=== PATIENT | female | born 1945 | race Caucasian/White ===

== ENCOUNTER 2018-02-19 08:13 | Emergency (ER) | payer MEDICARE ==
[2018-02-19] MEDS ORDERED: Sodium Chloride 0.9% 10 ML Syringe FLUSH PRN (09:17)
--- NOTE | 2018-02-19 09:18 | EDM.PDOC ---
ED HPI GENERAL MEDICAL PROBLEM - General Chief Complaint: General Stated Complaint: LEFT RIB PAIN Time Seen by Provider: 02/19/18 09:00 Source of Information: Reports: Patient, Family History Limitations: Reports: No Limitations - History of Present Illness INITIAL COMMENTS - FREE TEXT/NARRATIVE: Luz Maria comes into [facility] ED with a month long hx of intermittent lancinating pains originating from the L anterolateral costal margin, significance unknown. Sxs occur spontaneously, worse with prolonged sitting, and improve with standing. She reports no SOB, palpitations, cough, breast pain, rash, or voiding issues. She has not medicated. She is traveling from [facility]. L anterior rib area Pain Score (Numeric/FACES): 10 - Related Data Allergies Allergy/AdvReac Type Severity Reaction Status Date / Time No Known Allergies Allergy Verified 02/19/18 08:22 Home Meds: Home Meds Levothyroxine [Sythroid] 100 mcg PO DAILY 02/19/18 [History] Losartan/Hydrochlorothiazide [Losartan-HCTZ 100-25 MG] 1 tab DAILY 02/19/18 [ History] Past Medical History Cardiovascular History: Reports: Hypertension Gastrointestinal History: Reports: Chronic Constipation [employer] History: Reports: Other [employer] History: Musculoskeletal History: Reports: Arthritis, Fracture, Neck Pain, Chronic Other Musculoskeletal History: hx nasal fx Neurological History: Reports: Migraines Endocrine/Metabolic History: Reports: Hypothyroidism - Infectious Disease History Infectious Disease History: Reports: Chicken Pox, Measles - Past Surgical History GI Surgical History: Reports: Colonoscopy Neurological Surgical History: Reports: C-Spine Other Neurological Surgeries/Procedures: CS neck fusion Musculoskeletal Surgical History: Reports: Knee Replacement Other Musculoskeletal Surgeries/Procedures:: R partial knee replacement Social & Family History - Family History Family Medical History: Noncontributory - Tobacco Use Smoking Status *Q: Never Smoker - Caffeine Use Caffeine Use: Reports: Coffee, Tea - Recreational Drug Use Recreational Drug Use: No ED ROS GENERAL - Review of Systems Review Of Systems: See Below Constitutional: Reports: No Symptoms HEENT: Reports: No Symptoms Respiratory: Reports: No Symptoms Cardiovascular: Reports: Chest Pain Endocrine: Reports: No Symptoms GI/Abdominal: Reports: No Symptoms : Reports: No Symptoms Musculoskeletal: Reports: Neck Pain, Hand Pain, Joint Pain (OA in both knees) Skin: Reports: No Symptoms Neurological: Reports: No Symptoms Psychiatric: Reports: No Symptoms Hematologic/Lymphatic: Reports: No Symptoms Immunologic: Reports: No Symptoms ED EXAM, GENERAL - Physical Exam Exam: See Below Exam Limited By: No Limitations General Appearance: Alert, WD/WN, No Apparent Distress Eye Exam: Bilateral Eye: EOMI, Normal Inspection, PERRL Ears: Normal External Exam Nose: Normal Inspection Throat/Mouth: Normal Inspection, Normal Lips, Normal Teeth, Normal Oropharynx, Normal Voice, No Airway Compromise Head: Normocephalic Neck: Normal Inspection, Supple, Non-Tender Respiratory/Chest: No Respiratory Distress, Lungs Clear, Normal Breath Sounds, No Accessory Muscle Use, Other (tenderness at #10 rib with costal margin, no deformity palpable) Cardiovascular: Normal Peripheral Pulses, Regular Rate, Rhythm, No Edema, No Gallop, No JVD, No Murmur, No Rub, Other (prominent abdominal aorta, no bruit) GI/Abdominal: Normal Bowel Sounds, Soft, Non-Tender, No Organomegaly, No Distention, No Abnormal Bruit, No Mass, Other (abdominal aorta prominent ? tortuous) (Female) Exam: Deferred Rectal (Female) Exam: Deferred Back Exam: Normal Inspection, Full Range of Motion Extremities: Normal Inspection, Normal Range of Motion, Non-Tender, Other (DJDs both knees, patellar crepitus) Neurological: Alert, Oriented, CN II-XII Intact, Normal Cognition, Normal Gait, Normal Reflexes, No Motor/Sensory Deficits Psychiatric: Normal Affect, Normal Mood Skin Exam: Warm, Dry, Intact, Normal Color Lymphatic: No Adenopathy Course - Vital Signs Text/Narrative:: Luz Maria remained stable and asx at the [facility] ED. No meds were given. CBC and BMP were baseline. A chest x ray was normal. An abdominal CT w contrast noted a normal aorta without aneurysm. No abnormality of the LUQ or costal margin was identified. Incidental finding of gallstones and a small cyst of kidney. Costochondral tenderness may be inflammatory, managed with NSAIDs and periodic stretching while traveling. A disc with films will be provided. Last Recorded V/S: Last Vital Signs Temp 36.4 C 02/19/18 08:17 Pulse 60 02/19/18 09:20 Resp 18 02/19/18 09:20 BP 157/85 H 02/19/18 09:20 Pulse Ox 100 02/19/18 09:20 - Orders/Labs/Meds Orders: Active Orders 24 hr Category Date Time Status Abdomen Pelvis w Cont [CT] Stat Exams 02/19/18 09:10 Taken Chest 2V [CR] Stat Exams 02/19/18 09:56 Taken Diatrizoate Siobhan/Diatrizoate Na [Gastrografin 37%] Med 02/19/18 10:45 Active 30 ml PO . DIRECTED Sodium Chloride 0.9% [Saline Flush] Med 02/19/18 09:17 Active 10 ml FLUSH ASDIRECTED PRN Peripheral IV Insertion Adult [OM.PC] Routine Oth 02/19/18 09:17 Ordered Medication Orders Diatrizoate Meglum/Diatrizoate Sod (Gastrografin 37%) 30 ml PO . DIRECTED [facility] Last Admin: 02/19/18 10:33 Dose: 30 ml Sodium Chloride (Saline Flush) 10 ml FLUSH ASDIRECTED PRN PRN Reason: Keep Vein Open Last Admin: 02/19/18 09:13 Dose: 10 ml Labs: Laboratory Tests 02/19/18 02/19/18 Range/Units 09:15 09:32 WBC 5.0 (4.5-12.0) X10-3/uL RBC 4.57 (3.23-5.20) x10(6)uL Hgb 14.7 (11.5-15.5) g/dL Hct 44.3 (30.0-51.3) % MCV 97.0 H (80-96) fL MCH 32.2 (27.7-33.6) pg MCHC 33.2 (32.2-35.4) g/dL RDW 12.5 (11.5-15.5) % Plt Count 230 (125-369) X10(3)uL MPV 8.7 (7.4-10.4) fL Neut % (Auto) 60.4 (46-82) % Lymph % (Auto) 28.8 (13-37) % Vermilion % (Auto) 7.8 (4-12) % Eos % (Auto) 2 (1.0-5.0) % Baso % (Auto) 1 (0-2) % Neut # (Auto) 3.0 (1.6-8.3) # Lymph # (Auto) 1.4 (0.6-5.0) # Vermilion # (Auto) 0.4 (0.0-1.3) # Eos # (Auto) 0.1 (0.0-0.8) # Baso # (Auto) 0.1 (0.0-0.2) # Sodium 141 (135-145) mmol/L Potassium 3.7 (3.5-5.3) mmol/L Chloride 103 (100-110) mmol/L Carbon Dioxide 32 (21-32) mmol/L BUN 17 (7-18) mg/dL Creatinine 0.9 (0.55-1.02) mg/dL Est Cr Clr Drug Dosing 43.89 mL/min Estimated GFR (MDRD) > 60 (>60) BUN/Creatinine Ratio 18.9 (9-20) Glucose 109 (80-116) mg/dL Calcium 9.0 (8.6-10.2) mg/dL Meds: Medications Generic Name Dose Route Start Last Admin Trade Name Freq PRN Reason Stop Dose Admin Diatrizoate Meglum/Diatrizoate Sod 30 ml 02/19/18 10:45 02/19/18 10:33 Gastrografin 37% PO 30 ml . DIRECTED CLARITZA Administration Sodium Chloride 10 ml 02/19/18 09:17 02/19/18 09:13 Saline Flush FLUSH 10 ml ASDIRECTED PRN Administration Keep Vein Open Discontinued Medications Generic Name Dose Route Start Last Admin Trade Name Freq PRN Reason Stop Dose Admin Iopamidol 75 ml 02/19/18 10:14 02/19/18 10:22 Isovue-370 (76%) IV 02/19/18 10:15 73 ml ONETIME ONE Administration Departure - Departure Time of Disposition: 10:46 Disposition: Home, Self-Care 01 Condition: Good Clinical Impression: Atypical chest pain - Discharge Information *PRESCRIPTION DRUG MONITORING PROGRAM REVIEWED*: Not Applicable *COPY OF PRESCRIPTION DRUG MONITORING REPORT IN PATIENT KAMRYN: Not Applicable Referrals: PCP,None [Primary Care Provider] - Forms: ED Department Discharge - Problem List & Annotations (1) Atypical chest pain SNOMED Code(s): 839951011 Code(s): R07.89 - OTHER CHEST PAIN Status: Acute Current Visit: Yes Annotation/Comment:: I suggested NSAIDs and periodic stretches while traveling. - Problem List Review Problem List Initiated/Reviewed/Updated: Yes - My Orders Last 24 Hours: My Active Orders 02/19/18 09:10 Abdomen Pelvis w Cont [CT] Stat 02/19/18 09:17 Sodium Chloride 0.9% [Saline Flush] 10 ml FLUSH ASDIRECTED PRN Peripheral IV Insertion Adult [OM.PC] Routine 02/19/18 09:56 Chest 2V [CR] Stat 02/19/18 10:45 Diatrizoate Siobhan/Diatrizoate Na [Gastrografin 37%] 30 ml PO . DIRECTED - Assessment/Plan Last 24 Hours: My Active Orders 02/19/18 09:10 Abdomen Pelvis w Cont [CT] Stat 02/19/18 09:17 Sodium Chloride 0.9% [Saline Flush] 10 ml FLUSH ASDIRECTED PRN Peripheral IV Insertion Adult [OM.PC] Routine 02/19/18 09:56 Chest 2V [CR] Stat 02/19/18 10:45 Diatrizoate Siobhan/Diatrizoate Na [Gastrografin 37%] 30 ml PO . DIRECTED Plan: Follow up with PCP.
[2018-02-19] MEDS ORDERED: Iopamidol 755 Mg/ML 75 ML Bottle IV ONE (10:14)
[2018-02-19] MEDS ORDERED: Diatrizoate Meglumine/Diatrizoate Sodium 37% 30 ML Bottle PO SCH (10:45)
--- NOTE | 2018-02-19 13:06 | CT ---
INDICATION: Incidental palpable prominent aorta, question aneurysm. Intermittent left costal margin lancinating pain near 10th distal rib, reproducible with movement. Symptoms times one month. CT ABDOMEN AND PELVIS WITH CONTRAST: Spiral 2.5 mm axial sections were obtained through the abdomen and pelvis with oral and IV contrast (73 mL Isovue 370 at 2.1 mL/second), with sagittal and coronal reconstructions, 02/19/2018 - no comparisons were available. Total exam DLP = 423.95 mGy-cm. An active infiltrate or effusion was not identified. The heart was normal in size. No pericardial effusion was seen. There is a somewhat enlarged gallbladder noted. The wall of the gallbladder is only very slightly thickened. Within the gallbladder, there is a 28 mm calcific rimmed calculus. The gallbladder measured approximately 10 x 4 cm. The common bile duct did not appear grossly prominent, allowing for the patient s age. No intrahepatic ductal dilatation was identified. The abdominal aorta and iliac arteries, as well as the femoral arteries, showed evidence of calcification in the cervantes. The aorta is somewhat tortuous but is well within normal limits in caliber. No aneurysmal dilatation was seen in the aorta or iliac arteries. There also appears to be some atherosclerotic change - calcification in the renal arteries. The liver appeared to be normal. The spleen and stomach appear to be within normal limits. There is a low density lesion splaying the renal cortex in the mid pole posterolateral cortex at least 60% exophytic, measuring 16 x 22 mm. Likely this represents a benign cystic structure. No other renal masses were identified. The kidneys were otherwise essentially unremarkable. The adrenal glands also appeared to be normal. The pancreas had a normal appearance. The pancreatic duct did not appear to be dilated. No retroperitoneal masses were identified. The appendix was visualized on axial images #115 through #120 and appeared normal. No bowel obstruction or free air was seen. Urinary bladder was unremarkable. Uterine artery calcifications are noted. Moderate dextroconcave scoliosis of the thoracolumbar spine - mostly lumbar - is noted. Degenerative changes and disk disease are noted in the thoracolumbar spine with degenerative disk disease at L1-2, L2-3, L3-4 with anterolisthesis, minimal - grade 1 - also noted at L4-5. No specific rib abnormality was identified. If an occult bony abnormality is suspected clinically, nuclear bone imaging may be helpful for further evaluation. No additional mass lesions, organomegaly, or free fluid collections were identified in the abdomen or pelvis. IMPRESSION: 1. Cholelithiasis - cannot exclude cholecystitis. 2. ASD, no aneurysm is seen. 3. Degenerative changes, disk disease, scoliosis of thoracolumbar spine. 4. Small cystic structure, likely benign, left kidney mid pole. Report was given in person to Dr. Mann immediately after the examination became available for interpretation this a.m., 02/19/2018. LIBORIOD
--- NOTE | 2018-02-19 13:49 | CR ---
INDICATION: Left lower costal margin pain times one month, intermittent. No respiratory symptoms. CHEST: PA and lateral views of the chest were obtained 02/19/2018 - no comparisons were available. The heart appeared normal in size and shape. The aorta is minimally tortuous with minimal calcification in the arch. Minimal dextroconvex scoliosis of the mid thoracic spine, dextroconcave scoliosis at the thoracolumbar spine is noted. An active infiltrate or effusion was not identified. IMPRESSION: No acute process. MTDD
== END 2018-02-19 11:13 | disposition home or self-care (01) ==
LOC: FB.ED 08:13
DX: R07.89 Other chest pain (principal); I10 Essential (primary) hypertension; E03.9 Hypothyroidism, unspecified; Z79.899 Other long term (current) drug therapy
CPT/HCPCS: 36415; 71046; 74177; 80048; 85025; 99284; J7050; Q9963; Q9967